=== PATIENT | male | born 1980 | race Two or more races ===

== ENCOUNTER → 2016-10-28 | Outpatient (CLI) | payer OTHER ==
--- NOTE | 2016-10-28 10:39 | REP ---
High-resolution bilateral scrotal sonography: History: Testicular pain on the right since vasectomy in 2008. Findings: High-resolution bilateral scrotal sonography is performed. There are small bilateral hydroceles noted. Testicular parenchyma is homogeneous bilaterally. There is no evidence of intratesticular mass lesion on either side. Right testis measures 4.3 x 2.3 x 2.8 cm. The left testis measures 4.3 x 2.3 x 3.0 cm. Testicular Doppler flow is normal bilaterally. Resistive indices are 0.59 and 0.57 on the right and left respectively. No evidence of hernia, mass or varicocele. There is a 1.4 mm epididymal cyst on the right. Impression: No significant abnormality. Signed by Timothy Portillo MD 10/28/2016 03:02 P
== END | disposition home or self-care (01) ==
LOC: M SMT 08:18
PROVIDERS: ATTEND Nurse Practitioner Women's Health
DX: N50.819 Testicular pain, unspecified (principal)